=== PATIENT | female | born 1955 | race Hispanic/Latino ===

== ENCOUNTER 2018-11-24 13:44 | Emergency (ER) | payer MEDICAID ==
[2018-11-24 14:00] VITALS: BMI 19.5
--- NOTE | 2018-11-24 16:45 | ED PDOC ---
Arrival/HPI - General Chief Complaint: Upper Extremity Problem/Injury Time Seen by Provider: 11/24/18 14:09 Historian: Patient - History of Present Illness Narrative History of Present Illness (Text): 11/24/18 16:40 63yo female with history of right shoulder pain,hypertension, neuropathy who present with complaint of worsening right shoulder pain to her upper /mid back area x weeks. States she had xray of the shoulder done months ago and she was told that she needs surgery. States she takes unknown pain medication, but did not take it today. Denies trauma, focal weakness, paresthesia, chest pain, any other complaint. Past Medical History - Provider Review Nursing Documentation Reviewed: Yes - Infectious Disease Hx of Infectious Diseases: None - Cardiac Hx Cardiac Disorders: Yes Hx Hypertension: Yes - Pulmonary Hx Respiratory Disorders: No - Neurological Hx Neurological Disorder: No - HEENT Hx HEENT Disorder: No - Renal Hx Renal Disorder: No - Endocrine/Metabolic Hx Endocrine Disorders: No - Hematological/Oncological Hx Blood Disorders: No - Integumentary Hx Dermatological Disorder: No - Musculoskeletal/Rheumatological Hx Musculoskeletal Disorders: Yes Hx Arthritis: Yes - Gastrointestinal Hx Gastrointestinal Disorders: No - Genitourinary/Gynecological Hx Genitourinary Disorders: No - Psychiatric Hx Psychophysiologic Disorder: No Hx Substance Use: No Family/Social History - Physician Review Nursing Documentation Reviewed: Yes Family/Social History: Unknown Family HX Smoking Status: Heavy Smoker > 10 Cigarettes Daily Hx Alcohol Use: Yes (Last Drink Last Night:Beer & Vodka) Frequency of alcohol use: Daily Hx Substance Use: No Allergies/Home Meds Allergies/Adverse Reactions: Allergies No Known Allergies Allergy (Verified 11/24/18 14:00) Home Medications: Home Meds Medication Instructions Recorded Confirmed Folic Acid [FA-8] 1 tab PO DAILY 11/24/18 11/24/18 Gabapentin [Neurontin] 300 mg PO DAILY 11/24/18 11/24/18 Metoprolol [Lopressor] 0.5 tab PO DAILY 11/24/18 11/24/18 Review of Systems - Physician Review All systems were reviewed & negative as marked: Yes - Review of Systems Constitutional: Normal Eyes: Normal ENT: Normal Respiratory: Normal Cardiovascular: Normal Gastrointestinal: Normal Genitourinary Female: Normal Musculoskeletal: Arthralgias (Right shoulder) Skin: Normal Neurological: Normal Endocrine: Normal Hemo/Lymphatic: Normal Psychiatric: Normal Physical Exam Vital Signs Reviewed: Yes Vital Signs Temp Pulse Resp BP Pulse Ox 11/24/18 14:06 97.6 F 87 19 107/70 96 Temperature: Afebrile Blood Pressure: Normal Pulse: Regular Respiratory Rate: Normal Appearance: Positive for: Well-Appearing, Non-Toxic, Comfortable Pain Distress: None Mental Status: Positive for: Alert and Oriented X 3 - Systems Exam Head: Present: Atraumatic, Normocephalic Pupils: Present: PERRL Extroacular Muscles: Present: EOMI Conjunctiva: Present: Normal Mouth: Present: Moist Mucous Membranes Neck: Present: Normal Range of Motion Respiratory/Chest: Present: Clear to Auscultation, Good Air Exchange. No: Respiratory Distress, Accessory Muscle Use Cardiovascular: Present: Regular Rate and Rhythm, Normal S1, S2. No: Murmurs Abdomen: No: Tenderness, Distention, Peritoneal Signs Back: Present: Paraspinal Tenderness (Right sided parathoracic spine tenderness). No: Midline Tenderness, Pain with Leg Raise Upper Extremity: Present: NORMAL PULSES, Tenderness (Right aC joint shoulder), Neurovascularly Intact. No: Cyanosis, Edema, Normal ROM (Limited on abduction secondary to pain), Erythema, Deformity Lower Extremity: Present: Normal Inspection. No: Edema Neurological: Present: GCS=15, CN II-XII Intact, Speech Normal Skin: Present: Warm, Dry, Normal Color. No: Rashes Psychiatric: Present: Alert, Oriented x 3, Normal Insight, Normal Concentration Medical Decision Making ED Course and Treatment: 11/24/18 17:53 PT in ED for stated history. She was hemodynamically stable Right shoulder - No acute finding Thoracic spine DJD. No acute finding PT's pain was controlled in ED with medication She was DC home with Naprosyn and referred to ehr PMD/ortho - RAD Interpretation Radiology Orders: 11/24/18 14:44 SHOULDER RIGHT [RAD] Stat 11/24/18 14:46 DORSAL (THORACIC) SPINE [RAD] Stat - Medication Orders Current Medication Orders: Discontinued Medications Diazepam (Valium) 5 mg PO ONCE ONE; Protocol Stop: 11/24/18 14:50 Last Admin: 11/24/18 15:43 Dose: 5 mg Ketorolac Tromethamine (Toradol) 60 mg IM STAT STA Stop: 11/24/18 14:50 Last Admin: 01/18/19 15:44 Dose: 60 mg MAR Pain Assessment Document 11/24/18 15:44 HN (Rec: 11/24/18 15:45 HN [id number]) Pain Reassessment Is this a pain reassessment? No Presence of Pain Presence of Pain Yes Pain Scale Used Protocol: PSCALES Pain Scale Used Numeric Location Left, Right or Bilateral Right Description Description Constant Pain Behavior Moaning Crying IM Administration Charges Document 11/24/18 15:44 HN (Rec: 11/24/18 15:45 HN [id number]) Injection Site MAR Injection Site Left Deltoid Charges for Administration # of IM Administrations 1 Disposition/Present on Arrival - Present on Arrival Any Indicators Present on Arrival: No History of DVT/PE: No History of Uncontrolled Diabetes: No Urinary Catheter: No History of Decub. Ulcer: No History Surgical Site Infection Following: None - Disposition Have Diagnosis and Disposition been Completed?: Yes Diagnosis: Shoulder pain Disposition: HOME/ ROUTINE Disposition Time: 16:50 Patient Plan: Discharge Patient Problems: Current Active Problems Problem Status Onset Shoulder pain Acute Condition: STABLE Discharge Instructions (ExitCare): Shoulder Pain (DC) Additional Instructions: Follow up with your Doctor/Orthopedist Return to ED for any new symptoms Prescriptions: Naproxen [Naprosyn] 500 mg PO BID #20 tablet Referrals: Domingo Chen MD [Primary Care Provider] - Follow up with primary Kody Baker III, MD [Medical Doctor] - Follow up with primary Forms: [employer] (Slovak)
[2018-11-24 16:53] VITALS: RESP 20; TEMP 98; O2SAT 99
[2018-11-24 17:33] VITALS: BP 119/63; PULSE 69
--- NOTE | 2018-11-25 14:42 | RAD ---
Date of service: 11/24/2018 HISTORY: back pain COMPARISON: No prior. FINDINGS: BONES: Alignment maintained. No fracture. DISC SPACES: Normal. SOFT TISSUES: Normal. OTHER FINDINGS: None. IMPRESSION: Normal radiographs of the thoracic spine.
--- NOTE | 2018-11-25 14:44 | RAD ---
Date of service: 11/24/2018 PROCEDURE: Radiographs of the Right Shoulder HISTORY: shoulder pain COMPARISON: No prior. FINDINGS: BONES: Normal. No fracture. JOINTS: Normal. Glenohumeral and acromioclavicular joints preserved. No osteoarthritis. SOFT TISSUES: Normal. OTHER FINDINGS: None. IMPRESSION: Normal radiographs of the right shoulder.
== END 2018-11-24 18:02 | disposition home or self-care (01) ==
LOC: ED 13:44
DX: M25.511 Pain in right shoulder (principal); I10 Essential (primary) hypertension; F17.210 Nicotine dependence, cigarettes, uncomplicated
CPT/HCPCS: 72070; 73030; 96372; 99284; J1885

== ENCOUNTER 2018-11-24 18:41 | Emergency (ER) | payer MEDICAID ==
[2018-11-24 18:41] VITALS: BMI 19.5
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
[2018-11-24 19:05] VITALS: BP 110/69; PULSE 85; RESP 19; TEMP 97.6; O2SAT 96
== END 2018-11-24 18:58 | disposition home or self-care (01) ==
LOC: ED 18:41
DX: M25.511 Pain in right shoulder (principal); I10 Essential (primary) hypertension; F17.210 Nicotine dependence, cigarettes, uncomplicated